=== PATIENT | male | born 1945 | race Caucasian/White ===

== ENCOUNTER 2024-03-27 17:38 | Inpatient (IN) | payer OTHER ==
[~2024-03-27] VITALS: Ht 175.3 cm; Wt 70.8 kg
--- NOTE | 2024-03-27 17:42 | NUR ---
ROSE ALS TO ER BED 9
[2024-03-27 17:43] VITALS: BP 164/87; PULSE 180; RESP 20; TEMP 97; O2SAT 98
--- NOTE | 2024-03-27 18:04 | NUR ---
79 Y/O MALE BIBA BIBA FOR A-FIB RVR AT 180'S. PT HAS BEEN LAYING ON THE FLOOR X 1.5 DAYS. PT C/O GENERALIZED WEAKNESS. DENIES ANY HX OR MEDS. PT DENIES ANY PAIN, CHEST PAIN, OR PALPITATIONS, SOB, N/V/D, FEVER, CHILLS. PT ALERT AND ORIENTED TO PERSON, PLACE, TIME, AND SITUATION. IV LINE INSERTED BY FIRE ON SCENE AND GIVEN 1L OF FLUIDS. PT PLACED ON MONITOR, CALL LIGHT WITHIN REACH. BED POSITIONED AT LOWEST POSITION. PT PROVIDED WITH URINAL FOR URINE SAMPLE. NKA PMHX: DENIES
[2024-03-27] MEDS: NACL 0.9% 1,000 ML IV ONE ×2 (18:18→19:04)
[2024-03-27] MEDS ORDERED: cefTRIAXone 1,000 MG VIAL ONE (18:32)
[2024-03-27 19:00] LABS: ANION GAP 16.6 (8-16); CALCIUM 7.4 mg/dL (8.5-10.1); CARBON DIOXIDE 21.3 mmol/L (21-32); CHLORIDE 105 mmol/L (98-107); CREATININE 1.4 mg/dL (0.6-1.3); GLUCOSE 150 mg/dL (74-106); SODIUM SERUM 140 mmol/L (136-145); UREA NITROGEN, BLOOD 49 mg/dL (7-18)
[2024-03-27 19:02] LABS: POTASSIUM 2.9 mmol/L (3.5-5.1)
[2024-03-27 19:06] LABS: CREATINE KINASE, TOTAL 1119 U/L (39-308)
--- NOTE | 2024-03-27 19:07 | NUR ---
PERSONAL BELONGINGS LIST COMPLETE. PT DENIES TAKING ANY MEDS AT HOME.
--- NOTE | 2024-03-27 19:08 | NUR ---
BEST FRIEND PASCALE SEDONA [phone]
[2024-03-27] MEDS: POTASSIUM CHLORIDE 10 MEQ TABER PO ONE (19:15)
[2024-03-27 19:18] LABS: BASOPHILS % (AUTO) 0.1 % (0.0-2.0); HEMATOCRIT 43.9 % (36-52); HEMOGLOBIN 15.2 g/dL (12.0-18.0); LYMPHOCYTES # (AUTO) 0.3 K/uL (2.0-11.5); LYMPHOCYTES % (AUTO) 4.4 % (20.5-51.1); MEAN CORPUSCULAR HEMOGLOBIN 31 pg (27-31); MEAN CORPUSCULAR HGB CONC 35 g/dL (33-37); MEAN CORPUSCULAR VOLUME 91.1 fL (80-94); MONOCYTES # (AUTO) 0.3 K/uL (0.8-1.0); MONOCYTES % (AUTO) 4.1 % (1.7-9.3); NEUTROPHILS # (AUTO) 6.8 K/uL (1.8-7.7); NEUTROPHILS % (AUTO) 91.4 % (42.2-75.2); PLATELET COUNT (AUTO) 42 K/uL (140-450); RED BLOOD CELL COUNT(AUTO) 4.82 MIL/uL (4.20-6.10); RED CELL DISTRIBUTION WIDTH 13.4 % (11.6-13.7); WHITE BLOOD COUNT (AUTO) 7.4 K/uL (4.8-10.8)
[2024-03-27] MEDS: KCL 20 MEQ IN 100 mL PREMIX 100 ML IV ONE (19:18)
[2024-03-27 19:25] LABS: PHOSPHORUS 2.5 mg/dL (2.5-4.9); THYROID STIMULATING HORMONE 0.55 uIU/mL (0.34-3.74)
[2024-03-27 19:43] LABS: ALBUMIN 2.3 g/dL (3.4-5.0); BILIRUBIN,DIRECT 1.3 mg/dL (0.0-0.3); TOTAL BILIRUBIN 2.8 mg/dL (0.0-1.0); TOTAL PROTEIN, SERUM 5.3 g/dL (6.4-8.2)
--- NOTE | 2024-03-27 19:53 | NUR ---
PT IS RESTING IN BED WITH HOB ELEVATED. ON BEDSIDE CARIDAC MONITOR. RESP EVEN AND UNLABORED. DENIES PAIN AT THIS TIME. A/OX4 PENDING ADMISSION ORDERS . PT IS AWARE OF ADMISSION.
[2024-03-27 20:28] VITALS: O2SAT 95
[2024-03-27] MEDS: DILTIAZEM 25 MG/5 ML VIAL IVP ONE (20:43)
--- NOTE | 2024-03-27 20:44 | NUR ---
The patient's care was reviewed and supervised by KIYA BARKER RN.
--- NOTE | 2024-03-27 21:06 | NUR ---
Dr. Christiansen speaking with patient.
--- NOTE | 2024-03-27 21:19 | NUR ---
PT WANTS TO LEAVE AMA. STATES HE IS A [employer] V[employer] AND DOES NOT WANT TO STAT IN HOSPITAL. PT ALSO STATES " I WILL JUST COME BACK IN THE MORINING. I NEED TO GO HOME TO MY 12 CATS" PT IS A/OX4 DR GTZ SPOKE WITH PT AT BEDSIDE VERBALIZED THE RISKS OF LEAVING AGAINST MEDICAL ADVICE. PT IS ACKNOWLEGED AND PINA AMA FORM
--- NOTE | 2024-03-27 21:30 | NUR ---
PT WAS UNABLE TO AMBULATE WITH STEADY GAIT. PT AGREEDED TO BE ADMIT TO [facility]. DR GTZ AWARE. IV CATH REPLACED IN L AC 20G. ON BEDSIDE GRADUATE ASSISTANT. DENIES PAIN VS WNL. PENDING ADMISSION ORDERS
[2024-03-27 21:50] LABS: BILIRUBIN,URINE NEGATIVE (NEGATIVE); BLOOD, URINE 3+ (NEGATIVE); COLOR,URINE YELLOW (YELLOW); LEUKOCYTE ESTERASE ,URINE NEGATIVE (NEGATIVE); NITRITE, URINE NEGATIVE (NEGATIVE); PROTEIN,URINE 2+ (NEGATIVE); UGLUCOSE NEGATIVE (NEGATIVE)
[2024-03-27 21:54] LABS: APPEARANCE,URINE HAZY (CLEAR)
[2024-03-27 21:58] LABS: BACTERIA,URINE 1+ /HPF (None Seen); MUCUS,URINE 1+ /LPF (None Seen); RBC,URINE 0-5 /HPF (0-5); SQUAMOUS EPITHELIAL CELL,UR 0-3 (FEW) /LPF (0-3 (FEW)); WBC,URINE 0-5 /HPF (0-5)
[2024-03-27 23:29] VITALS: O2SAT 96
--- NOTE | 2024-03-27 23:30 | NUR ---
SPOKE TO LUCILLE TAX PROFESSIONAL REGARDING CLINICALS FOR PT . POSS TX OUT . TAX PROFESSIONAL STATED SARAH CHRISTOPHER [place]
[2024-03-28] VITALS (17 sets, daily range): BP systolic 93–143; BP diastolic 53–89; PULSE 90–138; RESP 18–31; TEMP 97.7–100.8; O2SAT 91–96
[2024-03-28] MEDS ORDERED: HYDROcodone/APAP 5/325 MG 1 TAB TAB PO PRN
[2024-03-28] MEDS ORDERED: ONDANSETRON 4 MG/2 ML VIAL IVP PRN
[2024-03-28] MEDS ORDERED: LORazepam 2 MG/ML VIAL IVP PRN (00:45)
[2024-03-28] MEDS: NACL 0.9% 1,000 ML IV SCH (00:51)
--- NOTE | 2024-03-28 01:02 | NUR ---
REPORT GIVEN TO JOSE RAMIREZ
--- NOTE | 2024-03-28 01:20 | NUR ---
RECEIVED PT FROM ER / [facility] , TRANSFER TO BED BY MANUAL LIFT , FULLY AWAKE , ALTHOUGH PT KNOWS HIS NAME , THE DATE , TIME TODAY AND WHERE HE IS AT , BUT THE PT ANSWER THE QUESTION TOO SLOW AND W/ OCASSIONALLY FORGETFULNESS , IV SITE INTACT AND PATENT , BIT TACHYCARDIC BUT DENIES ANY PAIN , PALPITATION . PT'S BP WNL , RA , O2 SAT WNL - DENIES . USES URINAL W/ ASSIST , ENSURE SAFETY AT ALL TIMES , WILL CARRY OUT FURTHER ORDERS AND ADM . ASSESSMET , PT IS ON TELE MONITOR , FALL RISK , CALL LIGHT WITHIN REACH , WILL CONT. TO MONITOR .
--- NOTE | 2024-03-28 01:50 | NUR ---
Patient will be admitted to care of DR BLAKELY. Admited to TELE. Will go to room 124. Belongings list completed. Report to JOSE RAMIERZ.
--- NOTE | 2024-03-28 01:55 | NUR ---
PER CARDINAL PHARMACIST VIT B1 DIRECT TIV PUSH - NO NEED TO DILUTE IT - WILL CARRY OUT .
[2024-03-28] MEDS: chlordiazePOXIDE 25 MG CAP PO SCH (02:09)
[2024-03-28] MEDS: THIAMINE 200 MG/2 ML VIAL IV SCH (02:10)
--- NOTE | 2024-03-28 04:47 | NUR ---
BP 91/ 62 , HR 120'S - 130'S , DENIES ANY PAIN - WILL REFER . Addendum: 03/28/24 at 0702 by Connie Reynolds RN AT 0500 - ARA SANTANA , IF PERSISTENT DECLINING THE BP - TRANSFER TOP ICU SND START AMIODARONE Addendum: 03/28/24 at 0703 by Connie Reynolds RN AT 0501 - BP RE CHECKED 1298 / 78 , HR 120'S W/ OCASSIONALLY 108 , 103 - WILL UPDATE GABBY SANTANA
[2024-03-28] MEDS ORDERED: AMIODARONE 450 MG in DEXTROSE 5% 250 ML IV SCH (05:00)
[2024-03-28] MEDS ORDERED: AMIODARONE 150 MG in DEXTROSE 5% 100 ML IV SCH (05:00)
--- NOTE | 2024-03-28 05:01 | NUR ---
PER GABBY SANTANA - HE WILL TALK THE ICU STAFF - ANALILIA SANTANA ABOUT PT'S BP 128/ 78 , HR BET. 120'S TO 130'S
[2024-03-28 05:25] LABS: BASOPHILS % (AUTO) 0.2 % (0.0-2.0); HEMATOCRIT 44.9 % (36-52); HEMOGLOBIN 15.5 g/dL (12.0-18.0); LYMPHOCYTES # (AUTO) 0.4 K/uL (2.0-11.5); LYMPHOCYTES % (AUTO) 5.8 % (20.5-51.1); MEAN CORPUSCULAR HEMOGLOBIN 32 pg (27-31); MEAN CORPUSCULAR HGB CONC 35 g/dL (33-37); MEAN CORPUSCULAR VOLUME 91.1 fL (80-94); MONOCYTES # (AUTO) 0.3 K/uL (0.8-1.0); MONOCYTES % (AUTO) 4.4 % (1.7-9.3); NEUTROPHILS # (AUTO) 6.2 K/uL (1.8-7.7); NEUTROPHILS % (AUTO) 89.6 % (42.2-75.2); RED BLOOD CELL COUNT(AUTO) 4.93 MIL/uL (4.20-6.10); RED CELL DISTRIBUTION WIDTH 13.6 % (11.6-13.7)
--- NOTE | 2024-03-28 05:25 | NUR ---
PATIENT ARRIVED TO ICU BED 3 VIA GURNEY ACCOMPANIED BY PRIMARY MST RN AND MST CHARGE NURSE. NO ADVERSE EVENTS REPORTED. PATIENT HOOKED TO MONITOR INITIAL V/S SHOW ELEVATED H/R IN THE 120S. ORIENTED PATIENT TO THE ICU. EDUCATION PROVIDED ON THE POC. PATIENT VERBALIZES UNDERSTANDING. SAFETY PRECAUTIONS IN PLACE: SIDE RAILS UP X3, BED IN LOW/LOCKED POSITION, CALL LIGHT WITHIN REACH. CARE ONGOING.
--- NOTE | 2024-03-28 05:37 | NUR ---
CALLED EXCHANGE TO PAGE QUILLER RUNNER CHECK CASHIER IN REGARDS TO ELEVATED HR AND ORDERS. AWAITING CALL BACK.
--- NOTE | 2024-03-28 05:40 | NUR ---
INITIAL ASSESSMENT SHOWS: PATIENT A&O X4, ABLE TO FOLLOW COMMANDS, MAKE NEEDS KNOWN AND ABLE TO HAVE A FULL CONVERSATION WITH DELAYED RESPONSES. PATIENT IS ON ROOM AIR, NO SOB/ACUTE DISTRESS, MAINTAINING ADEQUATE SATURATION. LUNG SOUNDS ARE CLEAR THROUGHOUT. APICAL HEART RATE AUSCULTATED AND IS RAPID REFLECTING HR 120S ON THE MONITOR, NO CHEST PAIN REPORTED. CAPILLARY REFILL <3 SECS, +2 PEDAL PULSES. ACTIVE BOWEL SOUNDS PRESENT ON ALL QUADRANTS, DENIES N/V/D. PATIENT STATES HE IS CONTINENT OF BOWEL AND BLADDER. BEDSIDE URINAL PROVIDED. REDNESS/EXCORIATION SEEN ON SCROTUM OTHERWISE WARM/DRY/AFEBRILE AND SKIN INTACT. A 20G TO THE LEFT AC IS IN PLACE, FLUSHES WELL AND HAS BLOOD RETURN/ ASYMPTOMATIC AND INTACT. PATIENT IS SEEN TO HAVE LIMITED ROM AND GENERALIZED WEAKNESS. SAFETY PRECAUTIONS IN PLACE, CALL LIGHT WITHIN REACH. MONITORING CLOSELY. Addendum: 03/28/24 at 0643 by MARQUIS SUTTON RN 20G TO THE LEFT SIDE.
--- NOTE | 2024-03-28 05:47 | NUR ---
endorsed to icu for further mgt , pt awake , bp 122/ 72 , hr 130's on tele monitor , but only 55 to 62 on bedside monitor , o2 sat 95 % , on RA Addendum: 03/28/24 at 0708 by Connie Reynolds RN 0545 PER KIKA SUP DON'T GIVE THE METOPROLOL BEC THE DISCREPANCY OF HR TO TELEMONITOR AND THE BEDSIDE MONITOR - JUST TRANSFER THE PT FOR CLOSELY MONITOR - WILL ENDORSE TO ICU ABOUT IT .
[2024-03-28 05:49] LABS: ANION GAP 12.8 (8-16); CALCIUM 8.1 mg/dL (8.5-10.1); CARBON DIOXIDE 24.7 mmol/L (21-32); CHLORIDE 107 mmol/L (98-107); CREATININE 1.2 mg/dL (0.6-1.3); GLUCOSE 120 mg/dL (74-106); POTASSIUM 3.5 mmol/L (3.5-5.1); SODIUM SERUM 141 mmol/L (136-145); UREA NITROGEN, BLOOD 40 mg/dL (7-18)
[2024-03-28 05:58] LABS: ALBUMIN 2.5 g/dL (3.4-5.0); BILIRUBIN,DIRECT 1.2 mg/dL (0.0-0.3); TOTAL BILIRUBIN 2.5 mg/dL (0.0-1.0); TOTAL PROTEIN, SERUM 5.8 g/dL (6.4-8.2)
[2024-03-28] MEDS: METOPROLOL SUCCINATE 50 MG TABER PO SCH (05:58)
--- NOTE | 2024-03-28 06:15 | NUR ---
PHONE CALL AGAIN TO DR CALHOUN, STEWARD/STEWARDESS.NO ANSWER. LEFT TEXT MESSAGE.AWAITING REPLY
--- NOTE | 2024-03-28 06:33 | NUR ---
PHONE CALL MADE TO DR TATE, PULMO MANAGER WATER,SPOKE WITH EXCHANGE, PLATER PRINTED CIRCUIT BOARD PANELS IS DR WAN, REGARDING CONSULT AND FURTHER ORDERS. AWAITING REPLY
--- NOTE | 2024-03-28 06:49 | NUR ---
2841: PAGED ON EXCHANGE FOR ONCHALEIGH SANTANA FOR ORDERS. AWAITING CALL BACK. 1334: SPOKE TO NORMA SANTANA FOR ORDERS. MADE AWARE OF ELEVATED HR AND CURRENT PATIENT PRESENTATION/PMH. PER FUNDRAISING ASSISTANT, GIVE METOPROLOL PO FIRST AND MONITOR RESPONSE, OK TO NOT START AMIODARONE GTT AT THIS TIME. RECEIVED AND CARRIED OUT.
[2024-03-28] MEDS: METOPROLOL SUCCINATE 50 MG TABER PO ONE (06:57)
--- NOTE | 2024-03-28 07:00 | NUR ---
ENDORSED REPORT TO KAYLYNN RAMIREZ. ALL QUESTIONS ANSWERED. PATIENT PRESENTATION AND ORDERS MADE AWARE.
[2024-03-28] MEDS: Z-GUARD PASTE TP ONE (07:02)
[2024-03-28 07:09] LABS: CREATINE KINASE, TOTAL 1237 U/L (39-308); MAGNESIUM 2.4 mg/dL (1.8-2.4); PHOSPHORUS 2.5 mg/dL (2.5-4.9)
[2024-03-28 07:15] LABS: PLATELET COUNT (AUTO) 45 K/uL (140-450)
--- NOTE | 2024-03-28 07:30 | NUR ---
RECEIVED BEDSIDE REPORT FROM ASSISTANT CENTER DIRECTOR NURSE FOR CONTINUITY OF CARE. PATIENT AWAKE, ALERTED AND ORIENTED X2, WITH EPISODE OF FORGETFULNESS, ABLE TO FOLLOW COMMAND AND COOPERATIVE. RESPIRATION EVEN AND UNLABORED ON ROOM AIR, LUNG SOUND CLEAR UPON AUSCULTATION. IV 22G ON LAC RUNNING NS AT 150 ML/HR AND 22G ON LFA SALINE LOCKED. SKIN WARM TO TOUCH, CLEAN, SCROTUM EXCORIATION. OVERALL BODY WEAKNESS, AND BEDREST AT THIS TIME. BEDSIDE MONITOR AND SAFETY MEASURES IN PLACE. BED IN LOW POSITION AND CALL LIGHT WITHIN REACH, INSTRUCTED PATIENT TO USE CALL LIGHT FOR ANY ASSISTANCE AND PT AWARE.
--- NOTE | 2024-03-28 09:16 | NUR ---
DR MENA IS ASSESSING PATIENT AT BEDSIDE, UPDATED MD WITH PATIENT'S CURRENT CONDITION, SAFETY MEASURES IN PLACE.
--- NOTE | 2024-03-28 09:44 | NUR ---
DR BLAKELY IS ASSESSING PATIENT AT BEDSIDE, UPDATED MD WITH PATIENT'S CURRENT CONDITION, SAFETY MEASURES IN PLACE.
[2024-03-28] MEDS: chlordiazePOXIDE 25 MG CAP ONE (10:10)
--- NOTE | 2024-03-28 10:13 | NUR ---
ADMINISTERED SCHEDULED MED PER MD ORDER, MED ADMINISTER LATE DUE TO OMICELL ISSUE, NURSING INSTRUCTOR MADE AWARE, WAITING FOR PHARMACY TO DELIVER FOLATE, MED EDUCATION PROVIDED AND PATIENT VERBALIZED UNDERSTANDING. PATIENT AWAKE AND RESTING ON BED, AND DENIES OF ANY DISTRESS. BEDSIDE MONITORS AND SAFETY MEASURES IN PLACE. BED IN LOW POSITION AND CALL LIGHT WITHIN REACH. INSTRUCTED PATIENT TO USE THE CALL LIGHT FOR ANY ASSISTANCE AND PATIENT AWARE.
[2024-03-28] MEDS: FOLIC ACID 1 MG TAB PO SCH (10:18)
--- NOTE | 2024-03-28 12:35 | NUR ---
DR CALHOUN IS ASSESSING PATIENT AT BEDSIDE, UPDATED MD WITH PATIENT'S CURRENT CONDITION, SAFETY MEASURES IN PLACE.
[2024-03-28] MEDS ORDERED: DIGOXIN 0.25 MG/ML AMP IV ONE (12:45)
[2024-03-28] MEDS: POTASSIUM CHLORIDE 10 MEQ TABER PO ONE (13:02)
[2024-03-28] MEDS: METOPROLOL 50 MG TAB PO SCH (13:03)
[2024-03-28] MEDS: Z-GUARD PASTE TP SCH (13:06)
--- NOTE | 2024-03-28 13:41 | NUR ---
DIGOXIN IV VIAL CRACKED, NOT USED.
[2024-03-28] MEDS: DIGOXIN 0.25 MG/ML AMP IV SCH ×2 (13:52→18:11)
--- NOTE | 2024-03-28 13:54 | NUR ---
MED EDUCATION WAS PROVIDED TO PATIENT AT BEDSIDE, PATIENT VERBALIZED UNDERSTANDING.SCHEDULED ONCE TIME DIGOXIN 0.5 MG VIA IVP ADMINISTERED. PATIENT AWAKE AND RESTING ON BED AT THIS TIME. DENIED OF ANY DISTRESS. SAFETY MEASURES IN PLACE. INSTRUCTED PATIENT TO USE CALL LIGHT FOR ANY ASSISTANCE.
--- NOTE | 2024-03-28 16:36 | NUR ---
REPORTED TO DR. BLAKELY THE RESULT IMPRESSION OF THE U/S SCROTUM AND NO NEW ORDER GIVEN.
--- NOTE | 2024-03-28 18:14 | NUR ---
ADMINISTERED SCHEDULED MEDS PER MD ORDER, PATIENT TOLERATED WELL, MEDICATIONS EDUCATION PROVIDED, PATIENT VERBALIZED UNDERSTANDING. PATIENT IS RESTING ON BED AND DENIES OF ANY DISTRESS. BEDSIDE MONITOR AND SAFETY MEASURES IN PLACE. BED IN LOW POSITION AND CALL LIGHT WITHIN REACH, INSTRUCTED PT TO USE THE CALL LIGHT FOR ANY ASSISTANCE AND PT SAID OK.
--- NOTE | 2024-03-28 19:20 | NUR ---
ENDORSED PATIENT AT BEDSIDE TO FIELD RETURN REPAIRER NURSE TO CONTINUITY OF CARE, BEDSIDE MONITOR AND SAFETY MEASURES IN PLACE.
--- NOTE | 2024-03-28 19:25 | NUR ---
RECEIVED REPORT FROM [facility] NURSECLEMENTINE RN FOR CONTINUATION OF CARE. PT ALERT, ORIENTED X2, VERBAL AND CAN MAKE NEEDS KNOWN. TEMPERATURE 100.8. AFIB ON SAFETY EQUIPMENT TESTER. ON ROOM AIR, NOT IN DISTRESS. PERIPHERAL IV ON LEFT AC G20, PATENT, FLUSHED WITH SALINE AND CAPPED. LEFT FOREARM G20, PATENT, INTACT, FLUSHED WITH SALINE WITH RUNNING 0.9% SODIUM CHLORIDE 1,000ML AT 150ML/H. CAMPOS CATHETER IN PLACE, DRAINING LIGHT SARINA URINE TO GRAVITY. SKIN NON INTACT- SEE SKIN ASSESSMENT. CALL LIGHT WITHIN REACH. SAFETY PRECAUTION IN PLACE: BED LOCKED AND LOWERED. PLAN OF CARE ONGOING.
[2024-03-28] MEDS: ACETAMINOPHEN 325 MG TAB PO PRN (19:40)
--- NOTE | 2024-03-28 20:45 | NUR ---
PT'S TEMPERATURE ELEVATED, COOLING MEASURES AND PRN MEDS PROVIDED. TEMPERATURE RECHECK WAS 98.9. PT REPOSITIONED. CALL LIGHT WITHIN REACH. SAFETY PRECAUTIONS IN PLACE.
--- NOTE | 2024-03-28 20:45 | NUR ---
PER DR. BLAKELY, PATIENT CAN BE DOWNGRADED TO TELE ONLY AFTER 12 MN OR AFTER GIVING DIGOXIN DOSE.
[2024-03-29] VITALS (15 sets, daily range): BP systolic 103–135; BP diastolic 55–82; PULSE 82–122; RESP 18–27; TEMP 97.9–100.5; O2SAT 88–97
[2024-03-29] MEDS: DIGOXIN 0.25 MG/ML AMP IV SCH (00:46)
--- NOTE | 2024-03-29 04:35 | NUR ---
PT CLEANED, GOWN AND LINENS CHANGED. NO BOWEL MOVEMENT OBSERVED. PT REPOSITIONED, ABLE TO TOLERATE. AFEBRILE. CALL LIGHT WITHIN REACH. SAFETY PRECAUTIONS IN PLACE.
[2024-03-29 05:19] LABS: ANION GAP 14.2 (8-16); CALCIUM 7.4 mg/dL (8.5-10.1); CARBON DIOXIDE 21.9 mmol/L (21-32); CHLORIDE 109 mmol/L (98-107); GLUCOSE 85 mg/dL (74-106); POTASSIUM 4.1 mmol/L (3.5-5.1); SODIUM SERUM 141 mmol/L (136-145); UREA NITROGEN, BLOOD 34 mg/dL (7-18)
[2024-03-29 05:28] LABS: CREATINE KINASE, TOTAL 560 U/L (39-308)
[2024-03-29 05:29] LABS: ALBUMIN 1.9 g/dL (3.4-5.0); BILIRUBIN,DIRECT 1.7 mg/dL (0.0-0.3); TOTAL BILIRUBIN 2.7 mg/dL (0.0-1.0); TOTAL PROTEIN, SERUM 4.6 g/dL (6.4-8.2)
--- NOTE | 2024-03-29 05:53 | NUR ---
REPORT ENDORSED TO TELE NURSESHARIF RN FOR CONTINUATION OF CARE. ALL QUESTIONS ANSWERED.
--- NOTE | 2024-03-29 06:00 | NUR ---
RECEIVED PATIENT FROM ICU NURSE IN STABLE CONDITION FOR CONTINUITY OF CARE. PATIENT ASLEEP AT THIS TIME. WHEELED OUT FROM ICU GOING TO [facility]. WILL CONTINUE TO MONITOR
--- NOTE | 2024-03-29 06:03 | NUR ---
PT WHEELED OUT OF UNIT VIA BED AND TRANSFERRED TO TELE ROOM 107B. PT'S VITALS REMAIN STABLE. PT NOT IN DISTRESS.
--- NOTE | 2024-03-29 06:06 | NUR ---
VOICEMAIL LEFT FOR PASCALE GREEN (FRIEND - [phone]). INFORMED HIM THAT PT HAS BEEN TRANSFERRED TO TELE UNIT ROOM 107B. ICU NUMBER GIVEN FOR CALL BACK FOR ANY QUESTIONS.
--- NOTE | 2024-03-29 07:14 | NUR ---
ENDORSED PT IN STABLE CONDITION TO AM NURSE FOR CONTINUITY OF CARE
[2024-03-29 07:16] LABS: BASOPHILS % (AUTO) 0.1 % (0.0-2.0); EOSINOPHILS % (AUTO) 0.1 % (0.0-4.0); HEMOGLOBIN 14.7 g/dL (12.0-18.0); LYMPHOCYTES # (AUTO) 0.2 K/uL (2.0-11.5); LYMPHOCYTES % (AUTO) 2.5 % (20.5-51.1); MEAN CORPUSCULAR HEMOGLOBIN 31 pg (27-31); MEAN CORPUSCULAR HGB CONC 34 g/dL (33-37); MEAN CORPUSCULAR VOLUME 91.9 fL (80-94); MONOCYTES # (AUTO) 0.3 K/uL (0.8-1.0); MONOCYTES % (AUTO) 4.2 % (1.7-9.3); NEUTROPHILS % (AUTO) 93.1 % (42.2-75.2); PLATELET COUNT (AUTO) 31 K/uL (140-450); RED BLOOD CELL COUNT(AUTO) 4.68 MIL/uL (4.20-6.10); RED CELL DISTRIBUTION WIDTH 13.7 % (11.6-13.7); WHITE BLOOD COUNT (AUTO) 6.4 K/uL (4.8-10.8)
--- NOTE | 2024-03-29 07:17 | NUR ---
RECEIVED PATIENT FROM ANIMAL CYTOLOGIST. PATIENT SLEEPING AT THIS TIME, RESPIRATION EVEN AND UNLABORED, NO SOB, NO DISTRESS NOTED. PLAN OF CARE ONGOING, NO FURTHER CONCERNS OF PRESENT. [id number]
--- NOTE | 2024-03-29 10:00 | NUR ---
PATIENT RESTING IN BED SLEPING. RESPIRATION EVEN AND UNLABORED. NO SOB. VSS. BED ALARM ON AND BED IN LOW POSITION. CALL LIGHT WITHIN NORMAL REACH. GAVE MEDS ORDERED; TOLERATED WELL. PLAN OF CARE ONGOING, NO FURTHER CONCERNS OF PRESENT. [id number]
--- NOTE | 2024-03-29 10:21 | NUR ---
PATIENT HAS BEEN SCREENED AND CATEGORIZED HIGH NUTRITION RISK. PATIENT WILL BE SEEN WITHIN 1-2 DAYS OF ADMISSION. 03/29/24 03/30/24 FNS NUTRITION CONSULT RECEIVED FOR WOUNDS/PRESSURE ULCERS. ANAYA POLO RD
--- NOTE | 2024-03-29 13:00 | NUR ---
PATIENT RESTING IN BED. VISIBLE CHEST RISE AND FALL. NO SOB. NO PAIN OR DISTRESS NOTED. BED IN LOW POSITION, CALL LIGHT WITHIN NORMAL REACH PLAN OF CARE ONGOING. [id number]
--- NOTE | 2024-03-29 15:20 | NUR ---
03/29/24 RD INITIAL ASSESSMENT COMPLETED PLEASE REFER TO NUTRITION ASSESSMENT UNDER CARE ACTIVITY FOR ESTIMATED NUTRITIONAL NEEDS. 1. CONTINUE REGULAR DIET TOLERATED 2. RECOMMEND ENSURE BID -PROVIDES ADDITIONAL 700 KCAL AND [address] TO FOLLOW-UP 3-5 DAYS, MODERATE RISK ANAYA POLO, RD
--- NOTE | 2024-03-29 16:00 | NUR ---
PATIENT RESTING IN BED. NO SOB. NO PAIN OR DISTRESS NOTED. VISIBLE CHEST RISE AND FALL. ASSISTED WITH ALL ADLS, KEPT WARM, DRY AND COMFORTABLE. CALL IGHT WITHIN NORMAL REACH, BED IN LOW POSITION. PLAN OF CARE ONGOING. [id number]
--- NOTE | 2024-03-29 16:17 | NUR ---
REVIEWED ADMITTING DX AND PMHX REVIEWED CXR 03/27/24 RECEIVED ON ROOM AIR SATURATION 88% PLACED ON SUPPLEMENTAL OXYGEN AT 2 LPM VIA NC
--- NOTE | 2024-03-29 16:27 | NUR ---
SATURATION ASCENDING TO 95% ON SUPPLEMENTAL OXYGEN AT 2 LPM VIA NC LOLA/MST RN NOTIFIED
--- NOTE | 2024-03-29 17:00 | NUR ---
RT PLACED PATIENT ON 2L NASAL CANULA. OXYGEN SATURATING 94-96
[2024-03-29] MEDS: DIGOXIN 0.25 MG TAB PO SCH (18:42)
--- NOTE | 2024-03-29 19:20 | NUR ---
RECEIVED PT FROM AM NURSE FOR CONTINUITY OF CARE. PT IS STABLE
--- NOTE | 2024-03-29 19:25 | NUR ---
ENDORSE TO PRACTICAL NURSE NURSE. VSS. PATIENT RESTING IN BED. VISIBLE CHEST RISE AND FALL. NO SOB. ALL MEDS GIVEN ORDERED; TOLERATED WELL. PLAN OF CARE ONGOING, NO FURTHER CONCERNS OF PRESENT. [id number]
[2024-03-29] MEDS: METOPROLOL 50 MG TAB PO SCH (20:39)
--- NOTE | 2024-03-29 21:00 | NUR ---
HELD LOPRESSOR 50MG. BP 103/55 HR 87
[2024-03-30] VITALS (9 sets, daily range): BP systolic 94–104; BP diastolic 46–62; PULSE 81–145; RESP 18–24; TEMP 97.3–97.8; O2SAT 94–99
--- NOTE | 2024-03-30 04:53 | NUR ---
[address] CALHOUN. PT HR 140-150S WITH AFIB UNCONTROLLED. GIVEN DIGOXIN AND STILL HR 140-150. NOT GIVEN LOPRESSOR PO MED DUE TO UNABLE TO SWALLOWING TODAY. MADE AWARE TO DR. CALHOUN. 1528 ANSWERED "YES". NO NEW ORDER GIVEN. Addendum: 03/30/24 at 1823 by RAUL CARNES RN INCORRECT TIME. CORRECT TIME:3496
[2024-03-30 06:52] LABS: BASOPHILS % (AUTO) 0.3 % (0.0-2.0); EOSINOPHILS % (AUTO) 0.1 % (0.0-4.0); HEMATOCRIT 44.2 % (36-52); HEMOGLOBIN 15.2 g/dL (12.0-18.0); LYMPHOCYTES # (AUTO) 0.2 K/uL (2.0-11.5); LYMPHOCYTES % (AUTO) 2.3 % (20.5-51.1); MEAN CORPUSCULAR HEMOGLOBIN 32 pg (27-31); MEAN CORPUSCULAR HGB CONC 34 g/dL (33-37); MEAN CORPUSCULAR VOLUME 91.8 fL (80-94); MONOCYTES # (AUTO) 0.2 K/uL (0.8-1.0); MONOCYTES % (AUTO) 2.3 % (1.7-9.3); NEUTROPHILS # (AUTO) 7.1 K/uL (1.8-7.7); PLATELET COUNT (AUTO) 24 K/uL (140-450); RED BLOOD CELL COUNT(AUTO) 4.81 MIL/uL (4.20-6.10); RED CELL DISTRIBUTION WIDTH 13.7 % (11.6-13.7); WHITE BLOOD COUNT (AUTO) 7.5 K/uL (4.8-10.8)
[2024-03-30 07:09] LABS: CREATINE KINASE, TOTAL 353 U/L (39-308)
[2024-03-30 07:24] LABS: CALCIUM 7.2 mg/dL (8.5-10.1); CARBON DIOXIDE 17.7 mmol/L (21-32); CHLORIDE 112 mmol/L (98-107); CREATININE 1.2 mg/dL (0.6-1.3); GLUCOSE 81 mg/dL (74-106); POTASSIUM 3.7 mmol/L (3.5-5.1); SODIUM SERUM 141 mmol/L (136-145); UREA NITROGEN, BLOOD 51 mg/dL (7-18)
--- NOTE | 2024-03-30 07:25 | NUR ---
ENDORSED PT IN STABLE CONDITION TO AM NURSE FOR CONTINUITY OF CARE
--- NOTE | 2024-03-30 07:30 | NUR ---
RECEIVED REPORT FROM NIGHTS SHIFT NURSE. PT IS SLEEPING. PT IS ON O2 MASK 4L, NO SOB NOTED. PT HAS SOFT AND NONTENDER ABD, ON CARDIAC DIET. PT HAS PERIPHERAL IV ON LEFT AC 20G AND RIGHT AC 22G. ON THE RIGHT AC, NS 150ML/HR INFUSING. BED IS LOCK AND LOW POSITION. CALL LIGHT WITHIN REACH.
[2024-03-30 07:43] LABS: ALBUMIN 1.6 g/dL (3.4-5.0); BILIRUBIN,DIRECT 3.2 mg/dL (0.0-0.3); TOTAL PROTEIN, SERUM 4.2 g/dL (6.4-8.2)
[2024-03-30] MEDS: DIGOXIN 0.25 MG TAB PO SCH (08:30)
--- NOTE | 2024-03-30 09:00 | NUR ---
TRY TO GIVE SCHEDULED 0900 MEDICATION. PT IS GENERAL WEAKNESS. OPEN EYES BUT UNABLE TO SWALLOWING. DISCARD ALL THE MORNING MEDICATION.
--- NOTE | 2024-03-30 09:27 | NUR ---
WOUND CARE NOTE: PT. IS ASLEEP, ON O2 MASK, NO S/S OF DISTRESS. PT. ADMITTED WITH MASD TO GROINS, SCROTAL, BILATERAL BUTTOCKS AND ZOYA-ANAL. SCROTAL MULTIPLE SUPERFICIAL EROSIONS, BUTTOCKS MOIST WITH MULTIPLE CLOSED SCABBING SKIN. PT. WITH LOW OMAR SCALE AT MODERATE TO HIGH RISK, CONTINUE TO FOLLOW PRESSURE INJURY PREVENTION INTERVENTIONS. RECOMMENDATIONS: -ZOYA-CARE Q2H AND PRN IF SOILING, MALE PURE WICK OR CONDOM CATH FOR MOISTURE CONTROL -APPLY Z GUARD TO GROINS, SCROTAL, BILATERAL BUTTOCKS AND ZOYA-ANAL BID AND LISA -APPLY FOAM DRESSING TO SACRALCOCCYX AND OTHER BONY PROMINENCES QD PREVENTION -PRESSURE REDISTRIBUTION SURFACE THERAPY ARIEL ISOFLEX MATTRESS -POSITIONING: TURN AND REPOSITION PATIENT Q 2H OR SOONER USE PILLOWS TO KEEP BONY PROMINENCES FROM DIRECT CONTACT WITH SURFACES USE REPOSITIONING WEDGES TO PROVIDE 30-DEGREE ANGLE FOR SIDE LYING POSITIONS OFFLOADING OR FOAM DRESSING TO ALL TUBING TO PREVENT MEDICAL DEVICES RELATED PRESSURE INJURY -RE-EVALUATING AND MANAGING INCONTINENCE MONITOR SKIN CONDITION DURING POSITION CHANGE DO NOT MASSAGE REDNESS, BONY PROMINENCES FREQUENT ZOYA-CARE AND PROVIDE BARRIER CREAMS PRN IF SOILING MOISTURE CONTROL BY OFFER BED DAWN/URINAL /ABSORBENT PAD TO WICK AND HOLD MOISTURE KEEP SKIN DRY AND PROTECT FROM FRICTION -MANAGE FRICTION/SHEAR/MOBILITY KEEP HOB AT THE LOWEST LEVEL OF ELEVATION NO MORE THAN 30 DEGREE UNLESS OTHERWISE CONTRAINDICATED USE LIFT SHEET OR TRANSFER DEVICE TO MOVE PATIENT AND PREVENT LATERAL SHEER. PROTECT HEELS, ELBOWS BONY PROMINENCES WITH SKIN BERRIES OR FOAM DRESSING IF EXPOSED TO FRICTION OFFLOAD BILATERAL HEELS BY PLACING PILLOWS UNDER CALVES AT ALL TIMES, UNLESS OTHERWISE CONTRAINDICATED -NUTRITION: PLEASE FOLLOW RD RECOMMENDATIONS AND OFFER NUTRITION SUPPLEMENTS IF ORDERED. PLEASE CONTACT WOUND CARE NURSE FOR ANY QUESTION AND CHANGE OF WOUND CONDITION.
--- NOTE | 2024-03-30 10:34 | NUR ---
RECEIVED ORDER FOR PATIENT TO GO TO SNF. [facility], AND [facility]. WILL FOLLOW UP WITH UPDATES IF ANYONE CAN ACCEPT. Addendum: 03/30/24 at 1328 by BETHANIE REBOLLEDO CM RECEIVED HECTOR FROM JANI AT [facility] WHO IS CURRENTLY REVIEWING PATIENTS CHART Addendum: 03/30/24 at 1429 by BETHANIE REBOLLEDO CM RECEIVED CALL FROM ROOSEVELT AT [facility] THAT THEY DON'T HAVE A MALE BED AVAILABLE. AND ALSO RECEIVED CALL FROM FRANCISCA AT [facility]/ SAUNDRA ACEVEDO WHO STATED THAT THEY DON'T HAVE ANY BEDS AT THIS MOMENT BUT WILL HAVE DISCHARGES NEXT WEEK. Addendum: 03/30/24 at 1432 by BETHANIE REBOLLEDO RECEIVED CALL FROM JANI AT [facility] WHO ACCEPTED PATIENT. [facility] [phone] LOCATED AT [address] [phone]. PATIENT WILL GO TO ROOM 17B UNDER DR HAWKINS. SENT MESSAGE TO NORMA TATE TO SEE IF WE CAN DC WILL FOLLOW UP WITH UPDATES. العراقي FROM [employer] FAXED SNF AUTH TO [facility] ALREADY
--- NOTE | 2024-03-30 10:51 | NUR ---
GRAIN THRESHER LEA MADE ROUND AND ASSESSED PT AT BEDSIDE. REVIEWED LAB DONE. NO NEW ORDER GIVEN. PT WEAKNESS AND SLEEPING.
--- NOTE | 2024-03-30 12:07 | NUR ---
DR. CROUCH MADE ROUND AND ASSESSED PT AT BEDSIDE. REVIEWED LAB DONE. NO NEW ORDER GIVEN. PT IS SLEEPING.
[2024-03-30] MEDS ORDERED: Z-GUARD PASTE TP PRN (12:35)
[2024-03-30] MEDS: Z-GUARD PASTE TP SCH (13:00)
--- NOTE | 2024-03-30 14:51 | NUR ---
1438 TRY TO GIVE TYLENOL PO MEDICATION. PT RESPONSE BUT GENERAL WEAKNESS. UNABLE TO GIVE TYLENOL DUE TO UNABLE TO SWALLOWING. DISCARD MEDICATION. NOTIFY TO POWERTRAIN CALIBRATION ENGINEER LEA. MADE AWARE PT DID NOT TAKE 0900 PO MEDICATION AND VS (BT:101, BP 107/66, HR 101, SPO2 98%) 1451 GIVEN ORDER FOR ACETAMINOPHEN IV, CT HEADE WITHOUT CONTRAST, AND ST EVAL.
[2024-03-30] MEDS: ACETAMINOPHEN 100 ML IV PRN (15:10)
[2024-03-30] MEDS: DIGOXIN 0.25 MG/ML AMP IV SCH (15:28)
--- NOTE | 2024-03-30 15:42 | NUR ---
PHYSICAL THERAPY NOTE PT ATTEMPTED TO SEE PATIENT FOR PT TREATMENT ON THIS DATE. HOWEVER, PATIENT WAS HELD BY RN DUE TO INCREASED FATIGUE. RN REPORTS PATIENT IS NOT APPROPRIATE AT THIS TIME AND NEEDS REST. PT TO TRY AGAIN AT A LATER DATE
[2024-03-30] MEDS ORDERED: THIAMINE 200 MG/2 ML VIAL IM ONE (16:25)
--- NOTE | 2024-03-30 16:53 | NUR ---
[address] CALHOUN. PT HR 140-150S WITH AFIB UNCONTROLLED. GIVEN DIGOXIN AND STILL HR 140-150. NOT GIVEN LOPRESSOR PO MED DUE TO UNABLE TO SWALLOWING TODAY. MADE AWARE TO DR. CALHOUN. 1652 DR. CALHOUN ANSWERED "YES". NO NEW ORDER GIVEN.
--- NOTE | 2024-03-30 17:30 | NUR ---
RT DISCARD O2 MASK. NO SOB AND SPO2 CHECKED 95-98% IN ROOM AIR.
[2024-03-30] MEDS: NACL 0.45% IV SCH (18:27)
[2024-03-30] MEDS: THIAMINE IV SCH (18:27)
[2024-03-30] MEDS: MULTIVITAMIN IV SCH (18:27)
[2024-03-30] MEDS: DEXT 5% IV SCH (18:27)
--- NOTE | 2024-03-30 19:30 | NUR ---
RECEIVED REPORT. PATIENT SLEEPING WITH SYMMETRICAL RISE AND FALL OF THE CHEST, ON ROOM AIR. NO ACUTE DISTRESS. IVF OF MULTIVITAMIN (BANANA BAG) INFUSING 100 ML/HR. BED IN LOW POSITION WHEELS LOCKED BILATERAL SIDE RAILS UP FOR SAFETY. CALL LIGHT WITHIN REACH. WILL CONTINUE TO MONITOR.
[2024-03-30] MEDS: METOPROLOL 50 MG TAB PO SCH (21:00)
[2024-03-31] VITALS: BP 120/43; PULSE 104; PULSE 88; RESP 22; TEMP 97.4; O2SAT 96
--- NOTE | 2024-03-31 02:55 | NUR ---
CT HEAD WITHOUT CONTRAST DONE.
[2024-03-31 04:00] VITALS: BP 98/52; PULSE 127; PULSE 90; RESP 21; TEMP 97.5; O2SAT 95
--- NOTE | 2024-03-31 05:00 | NUR ---
MORNING CARE RENDERED. PATIENT HAD BM, CLEANED CHANGED AND MADE COMFORTABLE.
[2024-03-31 07:05] LABS: ANION GAP 18.4 (8-16); CALCIUM 7.4 mg/dL (8.5-10.1); CARBON DIOXIDE 16.5 mmol/L (21-32); CHLORIDE 112 mmol/L (98-107); CREATININE 2.3 mg/dL (0.6-1.3); GLUCOSE 95 mg/dL (74-106); POTASSIUM 3.9 mmol/L (3.5-5.1); SODIUM SERUM 143 mmol/L (136-145)
[2024-03-31 07:20] LABS: UREA NITROGEN, BLOOD 75 mg/dL (7-18)
[2024-03-31 07:21] LABS: BASOPHILS % (AUTO) 0.1 % (0.0-2.0); EOSINOPHILS # (AUTO) 0.2 K/uL (0-0.4); EOSINOPHILS % (AUTO) 1.9 % (0.0-4.0); HEMATOCRIT 52.1 % (36-52); HEMOGLOBIN 18.1 g/dL (12.0-18.0); LYMPHOCYTES # (AUTO) 0.3 K/uL (2.0-11.5); LYMPHOCYTES % (AUTO) 2.7 % (20.5-51.1); MEAN CORPUSCULAR HEMOGLOBIN 32 pg (27-31); MEAN CORPUSCULAR HGB CONC 35 g/dL (33-37); MEAN CORPUSCULAR VOLUME 91.9 fL (80-94); MONOCYTES # (AUTO) 0.4 K/uL (0.8-1.0); MONOCYTES % (AUTO) 3.8 % (1.7-9.3); NEUTROPHILS # (AUTO) 9.4 K/uL (1.8-7.7); NEUTROPHILS % (AUTO) 91.5 % (42.2-75.2); RED BLOOD CELL COUNT(AUTO) 5.67 MIL/uL (4.20-6.10); RED CELL DISTRIBUTION WIDTH 14.1 % (11.6-13.7); WHITE BLOOD COUNT (AUTO) 10.3 K/uL (4.8-10.8)
--- NOTE | 2024-03-31 07:30 | NUR ---
RECEIVED REPORT FROM SANITATION WORKER CLEANING EQUIPMENT NURSE OF PT FOR CONTINUITY OF CARE. PT IS SLEEPING, ON ROOM AIR WITH SAT AT 96%. REPORTED THAT THE PT IS LETHARGIC AND UNCONTROLLED A FIB. SAFETY MEASURES IN PLACE. CALL LIGHT KEEP WITHIN REACH
--- NOTE | 2024-03-31 07:38 | NUR ---
ON OR ABOUT THIS TIME THIS RN RESPONDED TO A RAPID RESPONSE IN MED/TELE BED 107, SEE GAME PRODUCER NOTE FOR INTERVENTION.
[2024-03-31 07:40] VITALS: PULSE 69; RESP 28; O2SAT 98
--- NOTE | 2024-03-31 07:40 | NUR ---
STEEL WOOL MACHINE OPERATOR IS IN THE PT'S ROOM AND NOTICED PT'S BREATHING IS LABORED AND PT IS NOT RESPONDING. RAPID RESPONSED CALLED. VITAL SIGNS AND BG TAKEN AND REPORTED TO THE DOCTOR. CALLED SHIPPING ASSISTANT ALEE AND DR. CALHOUN AND ORDER TO SEND THE PT TO ICU. PT SEND OUT AND GAVE REPORT TO NURSE DHILLON
--- NOTE | 2024-03-31 07:40 | NUR ---
Patient presents on RA Spo2 98% RR 30 labored breathing noted patient is responding to pain however is not verbal rapid called . Intubation decided 2/2 patient obtunded. intubation to be done once patient transferred to ICU bed 2.
--- NOTE | 2024-03-31 07:42 | NUR ---
GAVE REPORT TO DAY SHIFT NURSE FOR CONTINUITY OF CARE.
[2024-03-31] MEDS ORDERED: INSULIN LISPRO SLIDING SCALE 100 UNITS/ML VIAL SUBQ PRN (07:55)
[2024-03-31] MEDS ORDERED: DEXTROSE 50% 50 ML SYR IVP PRN (07:55)
[2024-03-31 08:03] LABS: PLATELET COUNT (AUTO) 19 K/uL (140-450)
--- NOTE | 2024-03-31 08:07 | NUR ---
Patient received being preoxygenated with ambu bag mask @ 15LPM 100% fio2. Patient intubated with 7.5cm ETT @ 22 gum without incident good chest rise and fall noted clear bilateral breath sounds, positive color change noted. Patient placed on carescape 1355 VT 400 RR 16 +5 100%.
--- NOTE | 2024-03-31 08:07 | NUR ---
INTUBATED BY ED ATTENDING, DR. MARVIN. SEE RT NOTES FOR FURTHER DETAILS.
--- NOTE | 2024-03-31 08:10 | NUR ---
RECEIVED PATIENT FROM TELEMETRY UNIT. RECEIVED ENDORSEMENT FROM JAMES HERNANDEZ FOR CONTINUITY OF CARE. PATIENT CURRENTLY GETTING INTUBATED BY ER
[2024-03-31 08:13] VITALS: BP 59/48; PULSE 69; O2SAT 95
[2024-03-31] MEDS ORDERED: PROPOFOL 1000 MG/100 ML PREMIX 100 ML IV PRN (08:15)
[2024-03-31] MEDS ORDERED: ETOMIDATE 20 MG/10 ML VIAL IVP ONE (08:15)
[2024-03-31] MEDS ORDERED: ATROPINE 1 MG/10 ML SYR IVP ONE (08:15)
[2024-03-31] MEDS ORDERED: fentaNYL citrate 1 MG in NACL 0.9% 80 ML IV PRN (08:15)
[2024-03-31] MEDS ORDERED: ROCURONIUM 50 MG/5 ML VIAL IV ONE (08:15)
--- NOTE | 2024-03-31 08:17 | NUR ---
NO PULSE PALPATED. CODE BLUE CALLED. SEE CODE SHEET.
--- NOTE | 2024-03-31 08:17 | NUR ---
Code blue called patient being ventilated with ambu bag @ 15LPM 100% fio2. CPR preformed. See code blue sheet for details.
[2024-03-31] MEDS ORDERED: AMIODARONE 450 MG in DEXTROSE 5% 250 ML IV SCH (08:40)
--- NOTE | 2024-03-31 09:03 | NUR ---
TIME OF PRONOUNCED BE ED ATTENDING, DR. MARVIN. CODE TEAM SERVICES COMPLETED AT THIS TIME. CRITICAL CARE NURSING TEAM TO CONTINUE FURTHER CARE.
--- NOTE | 2024-03-31 09:20 | NUR ---
PATIENT'S REPORTED TO [facility] ATTOR[facility]'S OFFICE. WAS ADVISED THAT A DEPUT[facility] ATTORNEY WILL BE CALLING BACK.
--- NOTE | 2024-03-31 09:30 | NUR ---
Doctor ordered to advance tube 2 cm, Ett shows 5.5cm above rosa per CXR. ETT tube pulled to 23@gum line without incident. Addendum: 03/31/24 at 1113 by MATTHEW CASE RT @[id number] Doctor ordered to advance tube 2 cm, Ett shows 5.5cm above rosa per CXR. ETT tube pulled to 23@gum line without incident.
--- NOTE | 2024-03-31 09:43 | NUR ---
CONTACTED [facility], SPOKE TO ISI. CASE NUMBER IS [id number]. ISI SAID PATIENT IS ELIGIBLE FOR DONATION.
[2024-03-31] MEDS ORDERED: BLOOD GLUCOSE MONITORING 1 DEV DEV FS SCH (11:30)
--- NOTE | 2024-03-31 11:30 | NUR ---
FRIEND, PASCALE NEGRETE AT BEDSIDE. MADE AWARE THAT PATIENT . PASCALE ANSWERED ALL QUESTIONS WE HAD FOR HIM.
--- NOTE | 2024-03-31 11:50 | NUR ---
LEGAL JOB TITLES'S NAME: ATIF PUGA ([phone]) ATIF TO OBTAIN COPY OF REPORTS FROM MEDICAL RECORD. WAS GIVEN PERMISSION TO LOOK INTO PATIENT'S BELONGINGS INCLUDING WALLET. PATIENT HAS THE FOLLOWING: CLOTHES (COLTEN PANTS, PLAID SHIRT, SWEATER.,TANK TOP, SHIRT, SHOES, BELT) WALLET WITH $89, [employer] OPERATOR'S LICENSE, [employer] VISA, [employer] DEBIT, [employer] TRUST CARD, [employer] CARE INSURANCE CARD, [employer] CARD AND SOME RANDOM CARDS) [employer] WRIST WATCH TAPE MEASURE PATIENT TO BE PICKED UP FROM ICU 2 BY [facility] IN LESS THAN AN HOUR. LEGAL JOB TITLES'S NAME AND DIRECT NUMBER PROVIDED TO PATIENT'S FRIEND PASCALE GREEN. ADVISED HE MAY CALL HER SHOULD HE HAVE ANY ADDITIONAL INFORMATION FOR ABOUT THE PT.
--- NOTE | 2024-03-31 13:37 | NUR ---
PATIENT PICKED UP BY [facility], ALONG WITH PATIENT'S BELONGINGS. GOING TO [facility]. NOTIFIED NURSING OFFICE, SPOKE TO ICU DIRECTOR DEE, ABOUT [employer] PICKUP.
== END 2024-03-31 13:40 | DRG 682 ==
LOC: MED 17:38 → MTU 03-28 00:24 → MIC 03-28 05:30 → MTU 03-28 09:55 → MIC 03-28 09:59 → MTU 03-29 06:03 → MIC 03-31 08:00
PROVIDERS: ADMIT Student in an Organized Health Care Education/Training Program; ATTEND Student in an Organized Health Care Education/Training Program
PROC: 5A12012 Performance of Cardiac Output, Single, Manual (ICD-10-PCS; principal; 2024-03-31)
PROC: 0BH17EZ Insertion of Endotracheal Airway into Trachea, Via Natural or Artificial Opening (ICD-10-PCS; 2024-03-31)
PROC: 5A1935Z Respiratory Ventilation, Less than 24 Consecutive Hours (ICD-10-PCS; 2024-03-31)
DX: N17.0 Acute kidney failure with tubular necrosis (principal); E43 Unspecified severe protein-calorie malnutrition; I48.20 Chronic atrial fibrillation, unspecified; K70.30 Alcoholic cirrhosis of liver without ascites; F10.10 Alcohol abuse, uncomplicated; I46.9 Cardiac arrest, cause unspecified; Y90.9 Presence of alcohol in blood, level not specified; E87.6 Hypokalemia; S91.302A Unspecified open wound, left foot, initial encounter; X58.XXXA Exposure to other specified factors, initial encounter; D69.59 Other secondary thrombocytopenia; R74.01 Elevation of levels of liver transaminase levels; N43.3 Hydrocele, unspecified; N50.3 Cyst of epididymis; Z68.23 Body mass index [BMI] 23.0-23.9, adult; Y93.89 Activity, other specified; Y92.89 Other specified places as the place of occurrence of the external cause; Y99.8 Other external cause status
CPT/HCPCS: 36415; 70450; 71045; 76700; 76705; 76870; 80048; 80076; 81001; 82550; 82553; 82948; 83735; 83880; 84100; 84443; 84484; 85025; 87040; 87070; 87075; 87081; 87086; 87186; 87205; 93005; 96361; 96365; 96366; 96375; 97163-GP; 97530; 99291; A9153; J0282; J0461; J0696; J1160; J1815; J3411; J3480; J3490; J7060; Q0092